=== PATIENT | male | born 1960 | race Caucasian/White ===

== ENCOUNTER 2024-08-30 15:36 | Emergency (ER) | payer MEDICAID ==
[~2024-08-30] VITALS: Ht 177.8 cm; Wt 74.8 kg
[2024-08-30 15:56] VITALS: BP 123/71; TEMP 98; O2SAT 98
[2024-08-30] MEDS ORDERED: VALS80TA2 PO (16:06)
[2024-08-30] MEDS ORDERED: BISO5TAB20 PO (16:06)
== END 2024-08-30 16:27 | disposition home or self-care (01) ==
LOC: ER 15:47
DX: K64.9 Unspecified hemorrhoids (principal); I10 Essential (primary) hypertension; E78.5 Hyperlipidemia, unspecified; Z76.0 Encounter for issue of repeat prescription; Z79.899 Other long term (current) drug therapy; Z87.19 Personal history of other diseases of the digestive system; Z88.1 Allergy status to other antibiotic agents